=== PATIENT | female | born 1980 | race Caucasian/White ===

== ENCOUNTER 2016-07-05 21:17 | Emergency (ER) | payer OTHER ==
[~2016-07-05 21:17] MED LIST: ADVI200T PO; ALBU17IN INH; CAPS0.022 TOP; CYCL10TA PO; LIDO1OIN2 TOP; MELO15TA4 PO; MELOPOW PO; MOTR200T44 PO; NEUR300C PO; PERC7.5T12 PO; ROBA750T4 PO; ZYRT10CA PO
[2016-07-05] MEDS ORDERED: IBUPROFEN 600 MG TAB As Ordered ONE (23:01)
--- NOTE | 2016-07-05 23:08 | EDDOCDS ---
Physician Documentation [facility] Name: Sofia Wallis Age: 36 yrs Sex: Female : 1980 Arrival Date: 07/05/2016 Time: 21:17 Bed I8 / 16 Private MD: Jocelyn Krishna Abdul Disposition: 07/05/16 22:59 Discharged to Home/Self Care. Impression: Contusion of right hand. - Condition is Stable. - Discharge Instructions: Elastic Bandage and RICE, Hand Contusion. - Prescriptions for Ibuprofen 600 mg Oral Tablet - take 1 tablet by ORAL route every 6 hours As needed take with food; 30 tablet. - Medication Reconciliation, Local Pharmacy Hours form. - Follow up: Jocelyn Krishna; When: 4 - 5 days; Reason: Recheck today's complaints, Continuance of care. - Problem is new. - Symptoms are unchanged. Historical: - Allergies: SULFA (SULFONAMIDES) (Rash); - Home Meds: 1. gabapentin 600 mg Oral tab 1 tab 3 times per day 2. Zoloft 25 mg Oral tab 1 tab once daily has not started yet - PMHx: Anxiety; Arthritis; Chronic Back pain; Fibromyalgia; - PSHx: ; wrist surgery; foot surgery; parital hysterectomy; - Social history: Smoking status: Patient uses tobacco products, heavy tobacco smoker. No barriers to communication noted, The patient speaks fluent Lebanese, Speaks appropriately for age. - Family history: Not pertinent. - : The pt / caregiver states he / she is not on anticoagulants. Home medication list is obtained from the patient. - Exposure Risk Screening:: None identified. 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 6 in. (167.64 cm) (R); Pain 5/10; 23:04 BP 137 / 90; Pulse 69; Resp 18; Temp 97.8; Pulse Ox 97% on R/A; Pain 8/10; alea 21:19 Body Mass Index 26.63 (74.84 kg, 167.64 cm) gr2 MDM: 21:25 Hand, Complete Ordered. EDMS 22:58 Ajziel Wrap ordered. ke 22:58 Ibuprofen 600 mg PO once ordered. ke Administered Medications: 23:05 Drug: Ibuprofen 600 mg [ibuprofen 600 mg tablet (1 tabs)] Route: PO; [facility] [place] Signatures: Dispatcher [employer] EDMS Regino Brown RN RN cz Elsner, Karl, ACCOUNTING SYSTEMS MANAGER ACCOUNTING SYSTEMS MANAGER Deisy Stallings RN RN mlc MTDD
--- NOTE | 2016-07-05 23:08 | EDDOCDS ---
Nurse's Notes [facility] Name: Sofai Wallis Age: 36 yrs Sex: Female : 1980 Arrival Date: 07/05/2016 Time: 21:17 Bed I8 / 16 Private MD: Jocelyn Krishna Abdul Diagnosis: Contusion of right hand Presentation: 07/05 21:20 Presenting complaint: Patient states: she punched refrigerator and is now having right cz hand pain. Adult Sepsis Screening: The patient does not have new or worsening altered mentation. Patient's respiratory rate is less than 22. Systolic blood pressure is greater than 100. Patient has a qSOFA score of 0- Negative Sepsis Screen. Suicide/Homicide risk assessment- the patient denies having any suicidal and/or homicidal ideations and does not present with any other emotional, behavioral or mental health complaints. Status: Patient is not a technical service representative or dependent. Transition of care: patient was not received from another setting of care. 21:20 Acuity: ADOLFO Level 4 cz 21:20 Method Of Arrival: Walkin/Carried/Asstd cz Triage Assessment: 21:23 General: Appears in no apparent distress. Pain: Location: right hand. HIV screening NA cz for this visit Offered previously. 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 gabapentin 600 mg Oral tab 1 tab 3 times per day 2. Zoloft 25 mg Oral tab 1 tab once daily has not started yet - PMHx: Anxiety; Arthritis; Chronic Back pain; Fibromyalgia; - PSHx: ; wrist surgery; foot surgery; parital hysterectomy; - Social history: Smoking status: Patient uses tobacco products, heavy tobacco smoker. No barriers to communication noted, The patient speaks fluent Kyrgyz, Speaks appropriately for age. - Family history: Not pertinent. - : The pt / caregiver states he / she is not on anticoagulants. Home medication list is obtained from the patient. - Exposure Risk Screening:: None identified. Screenin:05 Screening information is obtained from the patient. Fall risk: No risks identified. mlc Assistance ADL's: requires no assistance with activities of daily living. Abuse/DV Screen: The patient / caregiver reports he/she is: not in a situation that causes fear, pain or injury. Nutritional screening: No deficits noted. Advance Directives: Currently, there is no health care proxy. home support is adequate. Assessment: 23:05 General: Appears in no apparent distress, comfortable, Behavior is cooperative. Pain: mlc Location: right hand Pain currently is 8 out of 10 on a pain scale. Neurological: Level of Consciousness is awake, alert, Oriented to person, place, time. Respiratory: Airway is patent Respiratory effort is even, unlabored, Respiratory pattern is regular. Musculoskeletal: Circulation, motion, and sensation intact. Vital Signs: 21:19 BP 147 / 83; Pulse 73; Resp 18 S; Temp 98.2(O); Pulse Ox 100% on R/A; Weight 74.84 kg gr2 (R); Height 5 ft. 6 in. (167.64 cm) (R); Pain 5/10; 23:04 BP 137 / 90; Pulse 69; Resp 18; Temp 97.8; Pulse Ox 97% on R/A; Pain 8/10; alea 21:19 Body Mass Index 26.63 (74.84 kg, 167.64 cm) gr2 Vitals: 21:19 Log In Time: July 05, 2016 at 21:19. gr2 ED Course: 21:19 Patient visited by Hank House. gr2 21:19 Jocelyn Krishna is Private Physician. gr2 21:19 Patient moved to Waiting gr2 21:20 Patient visited by Hank House. gr2 21:20 Patient moved to Pre RCE gr2 21:22 Triage Initiated cz 22:50 [facility] ke 22:50 Patient visited by Daniel Montes FNP. ke 22:50 Patient visited by Daniel Montes FNP. ke 22:50 Patient moved to I8 / 16 mb9 22:59 Jocelyn Krishna is Referral Physician. ke 23:04 Patient visited by Josefina Neal PCA. alea 23:05 The patient / caregiver is instructed regarding the plan of care and ED course. mlc 23:05 No IV's were initiated during this patient's visit. No procedures done that require mlc assistance. Administered Medications: 23:05 Drug: Ibuprofen 600 mg [ibuprofen 600 mg tablet (1 tabs)] Route: PO; mlc Order Results: There are currently no results for this order. Outcome: 22:59 Discharge ordered by Provider. ke 23:05 Discharge Assessment: Patient awake, alert and oriented x 3. No cognitive and/or mlc functional deficits noted. Patient verbalized understanding of disposition instructions. patient administered narcotics - no. The following High Risk Discharge criteria are identified: None. Discharged to home ambulatory. Condition: good Condition: stable. Discharge instructions given to patient, Instructed on discharge instructions, follow up and referral plans. medication usage, Demonstrated understanding of instructions, medications, Pt was receptive of discharge instructions/ teaching. Prescriptions given X 1. No special radiology studies were completed. Property sent home with patient. 23:07 [place]. [facility] [place] Signatures: Regino Brown, RN RN Daniel Starks, FISCAL OFFICER FISCAL OFFICER Josefina Peguero, Hank Messina gr2 Deisy Reyna RN RN Gilbert XavierRN RN mb9 MTDD
--- NOTE | 2016-07-06 07:01 | REP ---
Clinical: Trauma. Technique: AP, lateral, bilateral oblique views right hand . Findings: The osseous structures and joint spaces are intact and normal. There is no evidence for acute fracture or dislocation. Surrounding soft tissues are unremarkable. No subcutaneous emphysema or radiodense foreign body. Impression: Normal examination. No acute fracture or dislocation. Signed by Oliver Soto MD 07/06/2016 06:53 A
--- NOTE | 2016-07-08 00:08 | EDDOCDS ---
Nurse's Notes [facility] Name: Sofia Wallis Age: 36 yrs Sex: Female : 1980 Arrival Date: 07/05/2016 Time: 21:17 Bed I8 / 16 Private MD: Jocelyn Krishna Abdul Diagnosis: Contusion of right hand Presentation: 07/05 21:20 Presenting complaint: Patient states: she punched refrigerator and is now having right cz hand pain. Adult Sepsis Screening: The patient does not have new or worsening altered mentation. Patient's respiratory rate is less than 22. Systolic blood pressure is greater than 100. Patient has a qSOFA score of 0- Negative Sepsis Screen. Suicide/Homicide risk assessment- the patient denies having any suicidal and/or homicidal ideations and does not present with any other emotional, behavioral or mental health complaints. Status: Patient is not a client service supervisor or dependent. Transition of care: patient was not received from another setting of care. 21:20 Acuity: ADOLFO Level 4 cz 21:20 Method Of Arrival: Walkin/Carried/Asstd cz Triage Assessment: 21:23 General: Appears in no apparent distress. Pain: Location: right hand. HIV screening NA cz for this visit Offered previously. 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 gabapentin 600 mg Oral tab 1 tab 3 times per day 2. Zoloft 25 mg Oral tab 1 tab once daily has not started yet - PMHx: Anxiety; Arthritis; Chronic Back pain; Fibromyalgia; - PSHx: ; wrist surgery; foot surgery; parital hysterectomy; - Social history: Smoking status: Patient uses tobacco products, heavy tobacco smoker. No barriers to communication noted, The patient speaks fluent Kazakh, Speaks appropriately for age. - Family history: Not pertinent. - : The pt / caregiver states he / she is not on anticoagulants. Home medication list is obtained from the patient. - Exposure Risk Screening:: None identified. Screenin:05 Screening information is obtained from the patient. Fall risk: No risks identified. mlc Assistance ADL's: requires no assistance with activities of daily living. Abuse/DV Screen: The patient / caregiver reports he/she is: not in a situation that causes fear, pain or injury. Nutritional screening: No deficits noted. Advance Directives: Currently, there is no health care proxy. home support is adequate. Assessment: 23:05 General: Appears in no apparent distress, comfortable, Behavior is cooperative. Pain: mlc Location: right hand Pain currently is 8 out of 10 on a pain scale. Neurological: Level of Consciousness is awake, alert, Oriented to person, place, time. Respiratory: Airway is patent Respiratory effort is even, unlabored, Respiratory pattern is regular. Musculoskeletal: Circulation, motion, and sensation intact. Vital Signs: 21:19 BP 147 / 83; Pulse 73; Resp 18 S; Temp 98.2(O); Pulse Ox 100% on R/A; Weight 74.84 kg gr2 (R); Height 5 ft. 6 in. (167.64 cm) (R); Pain 5/10; 23:04 BP 137 / 90; Pulse 69; Resp 18; Temp 97.8; Pulse Ox 97% on R/A; Pain 8/10; alea 21:19 Body Mass Index 26.63 (74.84 kg, 167.64 cm) gr2 Vitals: 21:19 Log In Time: July 05, 2016 at 21:19. gr2 ED Course: 21:19 Patient visited by Hank House. gr2 21:19 Jocelyn Krishna is Private Physician. gr2 21:19 Patient moved to Waiting gr2 21:20 Patient visited by Hank House. gr2 21:20 Patient moved to Pre RCE gr2 21:22 Triage Initiated cz 22:50 [facility] ke 22:50 Patient visited by Daniel Montes FNP. ke 22:50 Patient visited by Daniel Montes FNP. ke 22:50 Patient moved to I8 / 16 mb9 22:59 Jocelyn Krishna is Referral Physician. ke 23:04 Patient visited by Josefina Neal PCA. alea 23:05 The patient / caregiver is instructed regarding the plan of care and ED course. mlc 23:05 No IV's were initiated during this patient's visit. No procedures done that require mlc assistance. 07/06 07:41 Hand, Complete Returned. EDMS 11:06 T-Sheet-- Draft Copy was scanned into [employer] and attached to record. gb Administered Medications: 07/05 23:05 Drug: Ibuprofen 600 mg [ibuprofen 600 mg tablet (1 tabs)] Route: PO; mlc Order Results: Radiology Order: Hand, Complete Test: Hand, Complete REASON FOR EXAMINATION: Trauma; Clinical: Trauma.; ; Technique: AP, lateral, bilateral oblique views right hand .; ; Findings: The osseous structures and joint spaces are intact and normal. There; is no evidence for acute fracture or dislocation. Surrounding soft tissues are; unremarkable. No subcutaneous emphysema or radiodense foreign body.; ; Impression:; Normal examination. No acute fracture or dislocation.; ; ; Signed by; Oliver Soto MD 07/06/2016 06:53 A; Outcome: 22:59 Discharge ordered by Provider. betzy 23:05 Discharge Assessment: Patient awake, alert and oriented x 3. No cognitive and/or mlc functional deficits noted. Patient verbalized understanding of disposition instructions. patient administered narcotics - no. The following High Risk Discharge criteria are identified: None. Discharged to home ambulatory. Condition: good Condition: stable. Discharge instructions given to patient, Instructed on discharge instructions, follow up and referral plans. medication usage, Demonstrated understanding of instructions, medications, Pt was receptive of discharge instructions/ teaching. Prescriptions given X 1. No special radiology studies were completed. Property sent home with patient. 23:07 Patient left the ED. [facility] [place] Signatures: Dispatcher [employer] EDMS Regino Brown, Soumya Bacon RN, Reg Reg gb Daniel Montes, INCIDENT RESPONSE ANALYST INCIDENT RESPONSE ANALYST Josefina Peguero, Hank Messina gr2 Deisy Reyna RN RN mlc Belles, Michael, RN RN mb9 Chart Complete MTDD
--- NOTE | 2016-07-08 00:08 | EDDOCDS ---
Physician Documentation [facility] Name: Sofia Wallis Age: 36 yrs Sex: Female : 1980 Arrival Date: 07/05/2016 Time: 21:17 Bed I8 / 16 Private MD: Jocelyn Krishna Abdul Disposition: 07/05/16 22:59 Discharged to Home/Self Care. Impression: Contusion of right hand. - Condition is Stable. - Discharge Instructions: Elastic Bandage and RICE, Hand Contusion. - Prescriptions for Ibuprofen 600 mg Oral Tablet - take 1 tablet by ORAL route every 6 hours As needed take with food; 30 tablet. - Medication Reconciliation, Local Pharmacy Hours form. - Follow up: Jocelyn Krishna; When: 4 - 5 days; Reason: Recheck today's complaints, Continuance of care. - Problem is new. - Symptoms are unchanged. Historical: - Allergies: SULFA (SULFONAMIDES) (Rash); - Home Meds: 1. gabapentin 600 mg Oral tab 1 tab 3 times per day 2. Zoloft 25 mg Oral tab 1 tab once daily has not started yet - PMHx: Anxiety; Arthritis; Chronic Back pain; Fibromyalgia; - PSHx: ; wrist surgery; foot surgery; parital hysterectomy; - Social history: Smoking status: Patient uses tobacco products, heavy tobacco smoker. No barriers to communication noted, The patient speaks fluent Ethiopian, Speaks appropriately for age. - Family history: Not pertinent. - : The pt / caregiver states he / she is not on anticoagulants. Home medication list is obtained from the patient. - Exposure Risk Screening:: None identified. 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 6 in. (167.64 cm) (R); Pain 5/10; 23:04 BP 137 / 90; Pulse 69; Resp 18; Temp 97.8; Pulse Ox 97% on R/A; Pain 8/10; alea 21:19 Body Mass Index 26.63 (74.84 kg, 167.64 cm) gr2 MDM: 21:25 Hand, Complete Ordered. EDMS 22:58 Jaziel Wrap ordered. ke 22:58 Ibuprofen 600 mg PO once ordered. ke 07/06 11:06 T-Sheet-- Draft Copy was scanned into [employer] and attached to record. gb Administered Medications: 07/05 23:05 Drug: Ibuprofen 600 mg [ibuprofen 600 mg tablet (1 tabs)] Route: PO; mlc Signatures: Dispatcher [employer] EDMS Regino Brown RN RN cz Soumya Herrera, Reg Reg Daniel Montes, FUEL EFFICIENT AUTOMOBILE DESIGNER FUEL EFFICIENT AUTOMOBILE DESIGNER Deisy Stallings RN RN mlc The chart was reviewed and I authenticate all verbal orders and agree with the evaluation and treatment provided.Attachments: 07/06 11:06 T-Sheet-- Draft Copy gb Chart Complete MTDD
--- NOTE | 2016-07-08 00:08 | EDDOCDS ---
Physician Documentation [facility] Name: Sofia Wallis Age: 36 yrs Sex: Female : 1980 Arrival Date: 07/05/2016 Time: 21:17 Bed I8 / 16 Private MD: Jocelyn Krishna Abdul Disposition: 07/05/16 22:59 Discharged to Home/Self Care. Impression: Contusion of right hand. - Condition is Stable. - Discharge Instructions: Elastic Bandage and RICE, Hand Contusion. - Prescriptions for Ibuprofen 600 mg Oral Tablet - take 1 tablet by ORAL route every 6 hours As needed take with food; 30 tablet. - Medication Reconciliation, Local Pharmacy Hours form. - Follow up: Jocelyn Krishna; When: 4 - 5 days; Reason: Recheck today's complaints, Continuance of care. - Problem is new. - Symptoms are unchanged. Historical: - Allergies: SULFA (SULFONAMIDES) (Rash); - Home Meds: 1. gabapentin 600 mg Oral tab 1 tab 3 times per day 2. Zoloft 25 mg Oral tab 1 tab once daily has not started yet - PMHx: Anxiety; Arthritis; Chronic Back pain; Fibromyalgia; - PSHx: ; wrist surgery; foot surgery; parital hysterectomy; - Social history: Smoking status: Patient uses tobacco products, heavy tobacco smoker. No barriers to communication noted, The patient speaks fluent Maldivian, Speaks appropriately for age. - Family history: Not pertinent. - : The pt / caregiver states he / she is not on anticoagulants. Home medication list is obtained from the patient. - Exposure Risk Screening:: None identified. 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 6 in. (167.64 cm) (R); Pain 5/10; 23:04 BP 137 / 90; Pulse 69; Resp 18; Temp 97.8; Pulse Ox 97% on R/A; Pain 8/10; alea 21:19 Body Mass Index 26.63 (74.84 kg, 167.64 cm) gr2 MDM: 21:25 Hand, Complete Ordered. EDMS 22:58 Jaziel Wrap ordered. ke 22:58 Ibuprofen 600 mg PO once ordered. ke 07/06 11:06 T-Sheet-- Draft Copy was scanned into [employer] and attached to record. gb Administered Medications: 07/05 23:05 Drug: Ibuprofen 600 mg [ibuprofen 600 mg tablet (1 tabs)] Route: PO; mlc Signatures: Dispatcher [employer] EDMS Regino Brown RN RN cz Soumya Herrera, Reg Reg Daniel Montes, JEWELRY CONSULTANT JEWELRY CONSULTANT Deisy Stallings RN RN mlc The chart was reviewed and I authenticate all verbal orders and agree with the evaluation and treatment provided.Attachments: 07/06 11:06 T-Sheet-- Draft Copy gb Chart Complete MTDD
== END 2016-07-05 23:07 | disposition home or self-care (01) ==
LOC: M ED 21:17
DX: S60.221A Contusion of right hand, initial encounter (principal); W22.8XXA Striking against or struck by other objects, initial encounter; Y92.019 Unspecified place in single-family (private) house as the place of occurrence of the external cause; Y93.89 Activity, other specified; Y99.8 Other external cause status; M12.9 Arthropathy, unspecified; F41.9 Anxiety disorder, unspecified; M54.9 Dorsalgia, unspecified; M79.7 Fibromyalgia; F17.210 Nicotine dependence, cigarettes, uncomplicated; Z79.899 Other long term (current) drug therapy; Z88.2 Allergy status to sulfonamides

== ENCOUNTER 2016-12-24 19:48 | Emergency (ER) | payer OTHER ==
[~2016-12-24] VITALS: Ht 172.7 cm; Wt 85.2 kg
[2016-12-24 21:58] LABS: BASO # 0.1 K/mm3 (0.0-0.2); BASO % 0.8 % (0.0-1.0); EOS # 0.3 K/mm3 (0.0-0.50); EOS % 2.5 % (0.0-3.0); LARGE UNSTAINED CELL # 0.2 K/mm3 (0.0-0.4); LARGE UNSTAINED CELL % 1.4 % (0.0-4.0); LYMPH # 2.6 K/mm3 (1.5-4.5); LYMPH % 21.7 % (24.0-44.0); MEAN CORPUSCULAR HEMOGLOBIN 30.9 pg (27.0-33.0); MEAN CORPUSCULAR HGB CONC 34.1 g/dl (32.0-36.5); MEAN CORPUSCULAR VOLUME 90.6 fl (80.0-96.0); MONO # 0.5 K/mm3 (0.0-0.8); MONO % 4.5 % (0.0-5.0); NEUTROPHILS # 7.9 K/mm3 (1.8-7.7); PLATELET COUNT, AUTOMATED 211 k/mm3 (150-450); RED CELL DISTRIBUTION WIDTH 13.2 % (11.5-14.5); WHITE BLOOD COUNT 11.4 K/mm3 (4.0-10.0)
[2016-12-24] MEDS ORDERED: CIPR-249 PO (22:09)
[2016-12-24] MEDS ORDERED: PYRI1TAB5 PO (22:13)
[2016-12-24 22:20] VITALS: BP 137/73
[2016-12-24] MEDS: CIPROFLOXACIN 500 MG TAB PO ONE (22:33)
[2016-12-24] MEDS: PHENAZOPYRIDINE 100 MG TAB PO ONE (22:33)
== END 2016-12-24 22:39 | disposition home or self-care (01) ==
LOC: M ED 20:57
DX: N30.00 Acute cystitis without hematuria (principal); F17.210 Nicotine dependence, cigarettes, uncomplicated

== ENCOUNTER 2017-04-04 02:24 | Emergency (ER) | payer OTHER ==
[~2017-04-04] VITALS: Ht 167.6 cm; Wt 77.0 kg
[~2017-04-04 02:24] MED LIST changes: +CIPR-249 PO; +PYRI1TAB5 PO
[2017-04-04] MEDS ORDERED: NS 1,000 ML IV ONE (03:15)
[2017-04-04] MEDS ORDERED: CYCLOBENZAPRINE 10 MG TAB PO ONE (03:15)
[2017-04-04] MEDS ORDERED: METOCLOPRAMIDE INJ 10MG/2ML VIAL (J2765) IV ONE (03:15)
[2017-04-04 03:42] LABS: BASO # 0.1 10^3/uL (0.0-0.2); BASO % 0.5 % (0.0-1.0); EOS # 0.1 10^3/uL (0.0-0.50); EOS % 0.7 % (0.0-3.0); IMMATURE GRANULOCYTE % 0.3 % (0-0); LYMPH # 1.9 10^3/uL (1.5-4.5); LYMPH % 16.9 % (24.0-44.0); MEAN CORPUSCULAR HEMOGLOBIN 30.8 pg (27.0-33.0); MEAN CORPUSCULAR HGB CONC 33.8 g/dl (32.0-36.5); MEAN CORPUSCULAR VOLUME 91.1 fl (80.0-96.0); MONO # 0.5 10^3/uL (0.0-0.8); MONO % 4.5 % (0.0-5.0); NEUTROPHILS # 8.6 10^3/uL (1.8-7.7); NEUTROPHILS % 77.1 % (36.0-66.0); PLATELET COUNT, AUTOMATED 236 10^3/uL (150-450); WHITE BLOOD COUNT 11.2 10^3/uL (4.0-10.0)
[2017-04-04 04:01] LABS: ANION GAP 6 MEQ/L (8-16); BLOOD UREA NITROGEN 9 MG/DL (7-18); CALCIUM LEVEL 9.6 MG/DL (8.5-10.1); CARBON DIOXIDE LEVEL 32 MEQ/L (21-32); CHLORIDE LEVEL 106 MEQ/L (98-107); CREATININE FOR GFR 0.77 MG/DL (0.55-1.02); GLOMERULAR FILTRATION RATE > 60.0 (>60); GLUCOSE, FASTING 105 MG/DL (70-105); POTASSIUM SERUM 3.9 MEQ/L (3.5-5.1); SODIUM LEVEL 144 MEQ/L (136-145)
--- NOTE | 2017-04-04 04:20 | REPUSA ---
CLINICAL HISTORY: Headaches. TECHNIQUE: Multiple axial brain CT scan sections were obtained from base to vertex without contrast a dministration. COMMENTS: Comparison to prior exam on 11/15/2014. Unchanged arachnoid cyst in the left aspect of the posterior fossa. The study shows normal configuration of sella turcica. There are no intra or extra-axial collections. There is no mass effect or midline shift. There is no evidence of hematoma formation. No hydrocephal us is present. No abnormal calcifications are noted. No significant abnormalities are seen either in the posterior fossa or supratentorial compartment. The sinuses and mastoid air cells are patent. IMPRESSION: No evidence of acute intracranial pathology. Thank you for your kind referral of this patient.
[2017-04-04 05:38] VITALS: BP 142/82
== END 2017-04-04 05:43 | disposition home or self-care (01) ==
LOC: M ED 02:24
DX: R51 Headache (principal); G89.29 Other chronic pain; M54.9 Dorsalgia, unspecified; F17.210 Nicotine dependence, cigarettes, uncomplicated; Z88.2 Allergy status to sulfonamides; Z79.899 Other long term (current) drug therapy
CPT/HCPCS: 36415; 70450; 80048; 85025; 96374; 99283; J2765

== ENCOUNTER 2022-12-06 22:27 | Emergency (ER) | payer OTHER ==
[~2022-12-06] VITALS: Ht 167.6 cm; Wt 125.9 kg
[~2022-12-06 22:27] MED LIST changes: +CYCL-707 PO; -CYCL10TA PO; +MELO15TA28 PO; -MELO15TA4 PO
[2022-12-06 22:28] VITALS: TEMP 99.1
[2022-12-07 03:30] VITALS: BP 161/87; O2SAT 99
== END 2022-12-07 04:33 | disposition home or self-care (01) ==
LOC: M ED 22:27
DX: R07.89 Other chest pain (principal); G62.9 Polyneuropathy, unspecified; F32.9 Major depressive disorder, single episode, unspecified; F17.200 Nicotine dependence, unspecified, uncomplicated; F19.10 Other psychoactive substance abuse, uncomplicated; Z79.899 Other long term (current) drug therapy; Z88.2 Allergy status to sulfonamides

== ENCOUNTER 2023-02-13 19:46 | Emergency (ER) | payer OTHER ==
[~2023-02-13] VITALS: Ht 167.6 cm; Wt 129.8 kg
[2023-02-13 19:47] VITALS: TEMP 97.5; O2SAT 100
[2023-02-13] MEDS ORDERED: KETOROLAC 30 MG/ML 1ML VIAL IV ONE (22:50)
[2023-02-13] MEDS ORDERED: AMPICILLIN SOD/SULBACTAM SOD 3 GM in D5W MINI-BAG PLUS 100 ML IV ONE (22:50)
[2023-02-13] MEDS ORDERED: NS 1,000 ML IV ONE (22:50)
[2023-02-13] MEDS ORDERED: ISOVUE-370 76% 100ML VIAL As Ordered ONE (22:53)
[2023-02-13 23:25] LABS: BASO # 0.1 10^3/uL (0.0-0.2); BASO % 0.7 % (0.0-1.0); EOS # 0.2 10^3/uL (0.0-0.5); EOS % 1.1 % (0.0-3.0); HEMATOCRIT 42.1 % (36.0-47.0); HEMOGLOBIN 13.3 g/dl (12.0-15.5); LYMPH # 3.1 10^3/uL (1.5-5.0); LYMPH % 22.7 % (24.0-44.0); MEAN CORPUSCULAR HEMOGLOBIN 26.9 pg (27.0-33.0); MEAN CORPUSCULAR HGB CONC 31.6 g/dl (32.0-36.5); MEAN CORPUSCULAR VOLUME 85.2 fl (80.0-96.0); MONO # 0.8 10^3/uL (0.0-0.8); NEUTROPHILS # 9.5 10^3/uL (1.5-8.5); PLATELET COUNT, AUTOMATED 292 10^3/uL (150-450); RED BLOOD COUNT 4.94 10^6/uL (4.00-5.40); WHITE BLOOD COUNT 13.8 10^3/uL (4.0-10.0)
[2023-02-13 23:43] LABS: ERYTHROCYTE SEDIMENTATION RATE 72 mm/hr (0-20)
[2023-02-14 00:31] VITALS: BP 162/93
[2023-02-14] MEDS ORDERED: HYDR-3713 PO (00:50)
[2023-02-14] MEDS ORDERED: AMOX875T2 PO (00:50)
[2023-02-14] MEDS ORDERED: LISI2.5T9 PO (00:50)
[2023-02-14] MEDS ORDERED: methylPREDNISolone 125MG 2ML VIAL IV ONE (00:55)
[2023-02-14] MEDS ORDERED: NORCO 5/325MG TABLET (HOME DOSE PACK) PO ONE (00:55)
== END 2023-02-14 01:32 | disposition home or self-care (01) ==
LOC: M ED 19:46
DX: K04.7 Periapical abscess without sinus (principal); L03.211 Cellulitis of face; I10 Essential (primary) hypertension; F17.200 Nicotine dependence, unspecified, uncomplicated; Z88.2 Allergy status to sulfonamides
CPT/HCPCS: 70487; 80047; 83605; 85025; 85652; 86140; 87040; 96365; 96375; 99284; J0295; J1885; J2930; Q9967